=== PATIENT | male | born 1945 | race Caucasian/White ===

== ENCOUNTER 2023-04-30 17:39 | Emergency (ER) | payer MEDICARE ==
[~2023-04-30] VITALS: Ht 185.4 cm; Wt 81.6 kg
--- NOTE | 2023-04-30 17:44 | NUR ---
Patient to ER bed 04 to gown for evaluation. Side rails up. Report given to Boris CORONEL .
[2023-04-30 17:45] VITALS: BP_SYST 180
[2023-04-30] MEDS ORDERED: KETOROLAC TROMETHAMINE 60 MG/2 ML VIAL IM ONE (17:45)
[2023-04-30] MEDS ORDERED: MORPHINE 4 MG INJ. 4 MG/ML VIAL IM ONE (17:45)
--- NOTE | 2023-04-30 18:30 | NUR ---
ASSESMENT PER FLOWSHEET. COMFORT MEASURES AND SUPPORTIVE CARE CONTINUED. PT POSITIONED FOR COMFORT.
[2023-04-30] MEDS ORDERED: NACL 0.9% 1,000 ML IV ONE (18:45)
[2023-04-30] MEDS ORDERED: MORPHINE 4 MG INJ. 4 MG/ML VIAL IVP ONE ×2 (18:45→20:30)
[2023-04-30 19:05] LABS: BASOPHILS % (AUTO) 0.4 % (0.0-2.0); EOSINOPHILS # (AUTO) 0.1 K/uL (0.0-0.4); EOSINOPHILS % (AUTO) 1.8 % (0.0-4.0); HEMATOCRIT 37.8 % (36-54); HEMOGLOBIN 13.2 g/dL (14.0-18.0); LYMPHOCYTES # (AUTO) 0.8 K/uL (1.0-5.5); MEAN CORPUSCULAR HEMOGLOBIN 31 pg (27-31); MEAN CORPUSCULAR HGB CONC 35 % (32-36); MEAN CORPUSCULAR VOLUME 89 fL (79.0-98.0); MONOCYTES # (AUTO) 0.5 K/uL (0.0-1.0); MONOCYTES % (AUTO) 7.2 % (1.7-9.3); NEUTROPHILS # (AUTO) 5.8 K/uL (1.8-7.7); NEUTROPHILS % (AUTO) 79.6 % (40.0-70.0); PLATELET COUNT (AUTO) 205 K/uL (130-430); RED BLOOD CELL COUNT(AUTO) 4.22 MIL/uL (4.2-6.2); RED CELL DISTRIBUTION WIDTH 12.8 % (9.0-15.0); WHITE BLOOD COUNT (AUTO) 7.3 K/uL (4.8-10.8)
--- NOTE | 2023-04-30 19:16 | NUR ---
IV ESTABLISHED. LAB DRAWN PRIOR BY COATER CARBON PAPER. ADDITIONAL ANALGESIA GIVEN PER ORDER. CONTINUED CARE ENDORSED TO DESTIN CORONEL.
[2023-04-30 19:21] LABS: ALANINE AMINOTRANSFERASE 16 U/L (12-78); ALBUMIN 3.7 g/dL (3.4-4.8); ANION GAP 13 (5-15); ASPARTATE AMINOTRANSFERASE 25 U/L (10-37); CALCIUM 10.4 mg/dL (8.4-11.0); CHLORIDE 99 mmol/L (98-107); CREATININE 1.22 mg/dL (0.55-1.30); GLUCOSE 128 mg/dL (70-99); TOTAL BILIRUBIN 0.9 mg/dL (0.0-1.0); UREA NITROGEN, BLOOD 28 mg/dL (8-21)
--- NOTE | 2023-04-30 19:58 | NUR ---
COVID SWAB COLLECTED AND GIVEN TO LABS
--- NOTE | 2023-04-30 21:01 | NUR ---
Note undone in EDM - 04/30/23 at 2108 by [id number] Patient given written and verbal discharge instructions and verbalizes understanding. ER MD SUMNER discussed with patient the results and treatment provided. Patient in stable condition. ID arm band removed. IV catheter removed intact and dressing applied, no active bleeding. Rx of SUBOXONE given. Patient educated on pain management and to follow up with PMD. Pain Scale . Opportunity for questions provided and answered. Medication side effect fact sheet provided.
--- NOTE | 2023-05-01 00:59 | NUR ---
TRANSPORT PT WILL BE GOING TO [facility], ROOM 4046 ACCEPTING DOCTOR MANE ORTIZ PHONE NUMBER FOR REPORT IS [phone] DOCUMENT RESTORER IS @[id number] S WITH [facility]
[2023-05-01] MEDS ORDERED: MORPHINE 4 MG INJ. 4 MG/ML VIAL IVP ONE (01:00)
[2023-05-01 01:05] VITALS: BP_SYST 151
--- NOTE | 2023-05-01 01:16 | NUR ---
REPORT CALLED TO HOMER LI AT [facility].
--- NOTE | 2023-05-01 01:50 | NUR ---
[facility] HERE. REPORT GIVEN AND PT DEPARTED.
--- NOTE | 2023-05-01 01:51 | NUR ---
Patient to be transferred to [facility]. Is being transferred due to higher level of care. Receiving facility has accepting physician and available space. ER physician has signed transfer form. Patient or responsible green party has agreed to transfer and signed form. Patient belongings inventoried and will be sent with patient. Copy of nursing notes, lab reports, EKG, Physicians Orders and X-rays to be sent with patient. Report called to HOMER LI at receiving facility. Receiving physician is Babak GILLIAM.. ambulance service has been called for transfer. ETA [id number] ].
== END 2023-05-01 01:52 | disposition home or self-care (01) ==
LOC: SED 17:39
DX: M54.32 Sciatica, left side (principal); M79.662 Pain in left lower leg; I10 Essential (primary) hypertension; Z79.899 Other long term (current) drug therapy; Z20.822 Contact with and (suspected) exposure to COVID-19
CPT/HCPCS: 99285; 96374; 96361; 87426; 80053; 85025; 36415; 96376 ×2; 96372; J1885; J2270 ×2; J7030